=== PATIENT | male | born 1960 | race Caucasian/White ===

== ENCOUNTER 2017-04-02 23:25 | Emergency (ER) | payer MEDICAID ==
[~2017-04-02] VITALS: Ht 182.9 cm; Wt 79.5 kg
[2017-04-02 23:47] LABS: GLUCOSE,POINT OF CARE 144 MG/DL (70-110)
[2017-04-02] MEDS ORDERED: OMEP20 PO (23:57)
[2017-04-02] MEDS ORDERED: THIA100 PO (23:57)
[2017-04-03 02:21] LABS: BASOPHILS % (AUTO) 0.2 % (0.0-2.0); EOSINOPHILS % (AUTO) 0.1 % (1.0-6.0); HEMATOCRIT 33.1 % (41-53); HEMOGLOBIN 10.7 g/dL (13.5-17.5); LYMPHOCYTES # (AUTO) 1.3 K/uL (1.0-4.8); LYMPHOCYTES % (AUTO) 30.9 % (22.0-44.0); MEAN CORPUSCULAR HEMOGLOBIN 25.6 pg (26.0-34.0); MEAN CORPUSCULAR HGB CONC 32.4 G/dL (31.0-37.0); MEAN CORPUSCULAR VOLUME 79 fL (80-100); MONOCYTES # (AUTO) 0.3 K/uL (0.1-1.0); MONOCYTES % (AUTO) 6.3 % (2.0-9.0); NEUTROPHILS # (AUTO) 2.6 K/uL (1.8-7.7); NEUTROPHILS % (AUTO) 62.5 % (40.0-70.0); PLATELET COUNT (AUTO) 150 K/uL (150-450); RED BLOOD CELL COUNT(AUTO) 4.18 MIL/uL (4.50-5.90); RED CELL DISTRIBUTION WIDTH 25.3 % (11.5-14.5); WHITE BLOOD COUNT (AUTO) 4.2 K/uL (4.5-11.0)
[2017-04-03 02:27] LABS: ANION GAP 11 mmol/L (8-16); CALCIUM, TOTAL 7.8 mg/dL (8.8-10.5); CARBON DIOXIDE 26 mmol/L (22-29); CHLORIDE 110 mmol/L (98-107); CREATININE 0.88 mg/dL (0.60-1.30); GLOMERULAR FILTR. RATE CALC > 60 mL/min (>60); SODIUM SERUM 147 mmol/L (136-145); UREA NITROGEN, BLOOD 4 mg/dL (7-18)
[2017-04-03 02:35] LABS: ALANINE AMINOTRANSFERASE 65 U/L (12-78); ALBUMIN 3.8 g/dL (3.4-5.0); ASPARTATE AMINOTRANSFERASE 99 U/L (15-37); BILIRUBIN,TOTAL 0.4 mg/dL (0.1-1.0); TOTAL PROTEIN, SERUM 6.9 g/dL (6.4-8.2)
[2017-04-03 03:38] LABS: RBC MORPHOLOGY COMMENT ABNORMAL RBC MORPH
[2017-04-03 06:05] VITALS: BP 123/74
== END 2017-04-03 06:06 | disposition home or self-care (01) ==
LOC: EMS 23:27
DX: R41.82 Altered mental status, unspecified (principal); F10.129 Alcohol abuse with intoxication, unspecified; K70.30 Alcoholic cirrhosis of liver without ascites; S40.212A Abrasion of left shoulder, initial encounter; E87.1 Hypo-osmolality and hyponatremia; J44.9 Chronic obstructive pulmonary disease, unspecified; Z87.891 Personal history of nicotine dependence; X58.XXXA Exposure to other specified factors, initial encounter; Y93.89 Activity, other specified; Y92.89 Other specified places as the place of occurrence of the external cause; Y99.8 Other external cause status
CPT/HCPCS: 36415; 80053; 82962; 84484; 85025; 99284; G0480

== ENCOUNTER 2019-07-02 05:32 | Day surgery (SDC) | payer OTHER ==
[~2019-07-02] VITALS: Ht 182.9 cm; Wt 84.1 kg
[~2019-07-02 05:32] MED LIST: ACAM333T7 PO; FOLI1 PO; MONT10TA21 PO; OMEP20 PO; SODIUM CHLORIDE 0.9% 1,000 ML IV ONE; SODIUM CHLORIDE 0.9% 1,000 ML ONE; THIA100T67 PO
[2019-07-02] MEDS ORDERED: LIDOCAINE/PF 2% 5 ML SYRINGE IVP ONE (12:00)
[2019-07-02] MEDS ORDERED: PROPOFOL 1% 20 ML VIAL IVP ONE (12:00)
== END 2019-07-02 09:30 | disposition home or self-care (01) ==
LOC: SURGERY 05:32
PROVIDERS: ATTEND Student in an Organized Health Care Education/Training Program
DX: R13.10 Dysphagia, unspecified (principal); K22.8 Other specified diseases of esophagus; K76.6 Portal hypertension; K31.89 Other diseases of stomach and duodenum; Z88.2 Allergy status to sulfonamides; Z88.1 Allergy status to other antibiotic agents; J44.9 Chronic obstructive pulmonary disease, unspecified; K21.9 Gastro-esophageal reflux disease without esophagitis; D64.9 Anemia, unspecified; F32.9 Major depressive disorder, single episode, unspecified; Z72.89 Other problems related to lifestyle; Z79.899 Other long term (current) drug therapy
CPT/HCPCS: 43239; 88305; 88312; C1769; J2704; J3490; J7030

== ENCOUNTER 2020-03-24 12:11 | Day surgery (SDC) | payer OTHER ==
[~2020-03-24] VITALS: Ht 182.9 cm; Wt 85.9 kg
[~2020-03-24 12:11] MED LIST changes: +DISU500T PO; +FLUT1BLS9 IH; +FOLI-130 PO; -FOLI1 PO; +LANS30CA56 PO; +LIDOCAINE/PF 2% 5 ML SYRINGE IVP ONE; +MONT-35 PO; -MONT10TA21 PO; +PROPOFOL 1% 20 ML VIAL IVP ONE; -THIA100T67 PO; +THIAMINE HCL100 MG PO; +TIOT185 IH
[2020-03-24 12:37] LABS: COVID AG,FIA SOURCE NASOPHARYNGEAL
== END 2020-03-24 15:25 | disposition home or self-care (01) ==
LOC: SURGERY 12:11
PROVIDERS: ATTEND Student in an Organized Health Care Education/Training Program
DX: K21.00 Gastro-esophageal reflux disease with esophagitis, without bleeding (principal); K44.9 Diaphragmatic hernia without obstruction or gangrene; K74.60 Unspecified cirrhosis of liver; B37.81 Candidal esophagitis
CPT/HCPCS: 43239; 87426; C1769; J2704; J3490; J7030; 88305; 88312; 88313